=== PATIENT | male | born 1960 ===

== ENCOUNTER 2016-10-21 10:46 | Outpatient (CLI) | payer BC ==
[2016-10-21 13:12] LABS: ALT (SGPT) 22 U/L (0-55); AST (SGOT) 20 U/L (5-34); Alkaline Phosphatase 60 U/L (40-150); Anion Gap 14 mmol/L (10-20); BUN (Urea Nitrogen) 22 mg/dL (8.4-25.7); Bilirubin, Total 0.4 mg/dL (0.2-1.2); Calc. Creatinine Clearance 0 mL/min (70-130); Calcium 9.7 mg/dL (7.8-10.44); Carbon Dioxide 28 mmol/L (22-29); Chloride 104 mmol/L (98-107); Estimated GFR-MDRD Greater than 90; Globulin 2.3 g/dL (2.4-3.5); LDL Cholesterol, Calculated 122 mg/dL; Protein, Total 6.4 g/dL (6.0-8.3)
[2016-10-21 13:37] LABS: #Basophils 0.1 thou/uL (0.0-0.2); #Eosinphils 0.2 thou/uL (0.0-0.7); #Lymphocytes 1.5 thou/uL (1.20-3.40); #Monocytes 0.7 thou/uL (0.11-0.59); #Neutrophils 4.4 thou/uL (1.40-6.50); %Eosinophils 2.8 % (0.0-10.0); %Monocytes 9.8 % (0.0-10.0); Hematocrit 48.2 % (42.0-52.0); Mean Platelet Volume 5.6 fL (7.4-10.4); Red Blood Cell (RBC) Count 5.26 mill/uL (4.70-6.10); White Blood Cell (WBC) Count 6.8 thou/uL (4.8-10.8)
[2016-10-21 14:14] LABS: Hemoglobin A1c 5.5 % (4.0-6.0)
== END 2016-10-21 10:47 | disposition home or self-care (01) ==
LOC: HPCALD 10:46
PROVIDERS: ATTEND Family Medicine
DX: E78.5 Hyperlipidemia, unspecified (principal); E11.9 Type 2 diabetes mellitus without complications; I10 Essential (primary) hypertension
CPT/HCPCS: 36415; 80053; 80061; 83036; 85025